=== PATIENT | female | born 1960 | race Caucasian/White ===

== ENCOUNTER 2016-06-14 19:22 | Emergency (ER) | payer MEDICARE, MEDICAID ==
[~2016-06-14 19:22] MED LIST: ATIVAN1 MG PO; DICLOFENAC SOD75 MG PO; TRAZODONE50 MG PO; ZANAFLEX 4MG TAB4 MG PO
[2016-06-14] MEDS ORDERED: CYMBALTA60 M1 PO (19:33)
[2016-06-14] MEDS ORDERED: DESYREL 100MG100 MG PO (19:33)
[2016-06-14] MEDS ORDERED: CYCLOBENZAPRINE10 M1 PO (19:34)
[2016-06-14] MEDS ORDERED: LYRICA 25MG CAP25 MG PO (19:34)
[2016-06-14 21:25] VITALS: BP 144/96
== END 2016-06-14 21:25 | disposition home or self-care (01) ==
LOC: ED 19:22
DX: M47.27 Other spondylosis with radiculopathy, lumbosacral region (principal)
CPT/HCPCS: J1885

== ENCOUNTER 2017-08-25 17:53 | Emergency (ER) | payer MEDICARE, MEDICAID ==
[~2017-08-25] VITALS: Ht 175.3 cm; Wt 56.8 kg
[~2017-08-25 17:53] MED LIST changes: +CYCLOBENZAPRINE10 M1 PO; +CYMBALTA60 M1 PO; +DESYREL 100MG100 MG PO; +LYRICA 25MG CAP25 MG PO
[2017-08-25] MEDS ORDERED: CHILDREN'S ASPI81 M1 PO (18:02)
[2017-08-25] MEDS ORDERED: LISINOPRIL10 MG PO (18:03)
[2017-08-25] MEDS ORDERED: IBU800 M1 PO (18:03)
[2017-08-25] MEDS ORDERED: METOPROLOL SUCC25 M1 PO (18:03)
[2017-08-25 18:33] LABS: BASO # 0.1 (0.02-0.10); EOS # 0.1 (0.04-0.40); EOS % 0.6 % (1.0-5.0); HEMOGLOBIN 13.4 g/dL (12.5-16.0); LYMPH# 2.8 (1.50-4.00); MEAN CELL VOLUME 86 fl (78-100); MEAN CORPUSCULAR HEMOGLOBIN 29 pg (27-31); MEAN CORPUSCULAR HGB CONC 34 g/dL (33-37); MEAN PLATELET VOLUME 10.6 fl (7.4-10.4); MONO # 0.7 (0.20-0.80); NEU # 6.2 (1.40-6.50); PLATELET COUNT 215 K/mm3 (130-400); RED BLOOD COUNT 4.68 M/mm3 (4.10-5.30); RED CELL DISTRIBUTION WIDTH 13.1 % (11.5-14.5); WHITE BLOOD COUNT 9.8 K/mm3 (4.8-10.8)
[2017-08-25 18:47] LABS: ALBUMIN 4.5 g/dL (3.5-5.0); BUN/CREATININE RATIO 14.5 (6.0-26.0); CALCIUM 9.7 mg/dL (8.4-10.2); TOTAL BILIRUBIN 0.5 mg/dL (0.2-1.3); TOTAL PROTEIN 8.2 g/dL (6.3-8.2)
[2017-08-25 18:50] LABS: PROTHROMBIN TIME 9.2 SECONDS (9.0-12.0)
[2017-08-25 18:59] LABS: POTASSIUM 2.7 mmol/L (3.6-5.0)
[2017-08-25 19:18] LABS: URINE COLOR YELLOW
[2017-08-25 19:33] LABS: URINE APPEARANCE CLEAR; URINE BILIRUBIN NEGATIVE (NEGATIVE); URINE BLOOD NEGATIVE (NEGATIVE); URINE GLUCOSE NEGATIVE (NEGATIVE); URINE KETONE NEGATIVE (NEGATIVE); URINE LEUKOCYTE ESTERASE TRACE (NEGATIVE); URINE NITRATE NEGATIVE (NEGATIVE); URINE PROTEIN(semi-quant) NEGATIVE (NEGATIVE); URINE UROBILINOGEN NORMAL (NORMAL)
[2017-08-25 22:23] LABS: BUN/CREATININE RATIO 12.7 (6.0-26.0); CALCIUM 8.9 mg/dL (8.4-10.2); POTASSIUM 3.1 mmol/L (3.6-5.0)
[2017-08-25] MEDS ORDERED: POTASSIUM CHLO20 ME3 PO (23:14)
[2017-08-26] VITALS: BP 125/75
== END 2017-08-26 | disposition home or self-care (01) ==
LOC: ED 17:53
PROVIDERS: Family Medicine
DX: E87.6 Hypokalemia (principal); R07.9 Chest pain, unspecified; I10 Essential (primary) hypertension; I49.3 Ventricular premature depolarization; I25.2 Old myocardial infarction; F17.200 Nicotine dependence, unspecified, uncomplicated; Z79.82 Long term (current) use of aspirin; Z79.899 Other long term (current) drug therapy
CPT/HCPCS: J1885; J3480

== ENCOUNTER 2018-05-02 15:27 | Emergency (ER) | payer MEDICARE, MEDICAID ==
[~2018-05-02] VITALS: Ht 172.7 cm; Wt 56.8 kg
[~2018-05-02 15:27] MED LIST changes: +CHILDREN'S ASPI81 M1 PO; +IBU800 M1 PO; +LISINOPRIL10 MG PO; +METOPROLOL SUCC25 M1 PO; +POTASSIUM CHLO20 ME3 PO
[2018-05-02] MEDS ORDERED: LYRICA50 MG PO (15:33)
[2018-05-02] MEDS ORDERED: POTASSIUM CHLO10 ME8 PO (15:33)
[2018-05-02] MEDS ORDERED: KETOROLAC TROME10 MG PO (15:33)
[2018-05-02 16:09] LABS: BASO # 0.1 (0.02-0.10); EOS # 0.1 (0.04-0.40); EOS % 1.2 % (1.0-5.0); HEMATOCRIT 41.9 % (37.0-47.0); HEMOGLOBIN 13.7 g/dL (12.5-16.0); LYMPH# 1.9 (1.50-4.00); MEAN CELL VOLUME 88 fl (78-100); MEAN CORPUSCULAR HEMOGLOBIN 29 pg (27-31); MEAN CORPUSCULAR HGB CONC 33 g/dL (33-37); MEAN PLATELET VOLUME 10.3 fl (7.4-10.4); MONO # 0.9 (0.20-0.80); NEU # 5.7 (1.40-6.50); PLATELET COUNT 231 K/mm3 (130-400); RED BLOOD COUNT 4.78 M/mm3 (4.10-5.30); RED CELL DISTRIBUTION WIDTH 13.5 % (11.5-14.5); WHITE BLOOD COUNT 8.6 K/mm3 (4.8-10.8)
[2018-05-02 16:15] LABS: ALBUMIN 4.5 g/dL (3.5-5.0); CALCIUM 9.6 mg/dL (8.4-10.2); POTASSIUM 3.2 mmol/L (3.6-5.0); TOTAL BILIRUBIN 0.3 mg/dL (0.2-1.3)
[2018-05-02 16:34] LABS: URINE APPEARANCE CLEAR; URINE BILIRUBIN NEGATIVE (NEGATIVE); URINE BLOOD NEGATIVE (NEGATIVE); URINE COLOR YELLOW; URINE GLUCOSE NEGATIVE (NEGATIVE); URINE KETONE NEGATIVE (NEGATIVE); URINE LEUKOCYTE ESTERASE NEGATIVE (NEGATIVE); URINE NITRATE NEGATIVE (NEGATIVE); URINE PROTEIN(semi-quant) NEGATIVE (NEGATIVE); URINE UROBILINOGEN NORMAL (NORMAL); URINE WBC 0-1 /hpf (0-3)
[2018-05-02 17:50] VITALS: BP 136/96
== END 2018-05-02 17:38 | disposition home or self-care (01) ==
LOC: ED 15:27
PROVIDERS: Physician Assistant
DX: E86.0 Dehydration (principal); E87.6 Hypokalemia; I95.1 Orthostatic hypotension; F41.9 Anxiety disorder, unspecified; I47.1 Supraventricular tachycardia; F43.10 Post-traumatic stress disorder, unspecified; M79.7 Fibromyalgia; Z90.710 Acquired absence of both cervix and uterus; Z90.89 Acquired absence of other organs
CPT/HCPCS: J7030

== ENCOUNTER → 2018-05-09 | Outpatient (CLI) | payer MEDICARE, MEDICAID ==
[2018-05-02 17:50] VITALS: BP 136/96
[~2018-05-09] MED LIST changes: +KETOROLAC TROME10 MG PO; +LYRICA50 MG PO; +POTASSIUM CHLO10 ME8 PO
[2018-05-09 16:48] LABS: ALBUMIN 4.1 g/dL (3.5-5.0); POTASSIUM 3.7 mmol/L (3.6-5.0); TOTAL BILIRUBIN 0.3 mg/dL (0.2-1.3); TOTAL PROTEIN 7.4 g/dL (6.3-8.2)
[2018-05-09 17:02] LABS: BASO # 0.1 (0.02-0.10); EOS # 0.2 (0.04-0.40); EOS % 2.1 % (1.0-5.0); HEMOGLOBIN 12.8 g/dL (12.5-16.0); LYMPH# 1.9 (1.50-4.00); MEAN CELL VOLUME 90 fl (78-100); MEAN CORPUSCULAR HEMOGLOBIN 29 pg (27-31); MEAN CORPUSCULAR HGB CONC 32 g/dL (33-37); MEAN PLATELET VOLUME 10.8 fl (7.4-10.4); MONO # 0.7 (0.20-0.80); NEU # 4.4 (1.40-6.50); PLATELET COUNT 202 K/mm3 (130-400); RED BLOOD COUNT 4.44 M/mm3 (4.10-5.30); RED CELL DISTRIBUTION WIDTH 13.7 % (11.5-14.5); WHITE BLOOD COUNT 7.2 K/mm3 (4.8-10.8)
== END ==
LOC: LAB 15:10
PROVIDERS: Family Medicine
DX: E03.9 Hypothyroidism, unspecified (principal); S14.109A Unspecified injury at unspecified level of cervical spinal cord, initial encounter; R79.89 Other specified abnormal findings of blood chemistry

== ENCOUNTER → 2018-05-22 | Outpatient (CLI) | payer MEDICARE, MEDICAID ==
[2018-05-02 17:50] VITALS: BP 136/96
== END ==
LOC: MAMMO 10:00
DX: Z12.31 Encounter for screening mammogram for malignant neoplasm of breast (principal)

== ENCOUNTER → 2019-03-30 | Outpatient (CLI) | payer MEDICARE, MEDICAID ==
[2019-03-30 10:52] LABS: BASO # 0.1 (0.02-0.10); EOS # 0.2 (0.04-0.40); EOS % 2.5 % (1.0-5.0); HEMOGLOBIN 13.1 g/dL (12.5-16.0); LYMPH# 1.7 (1.50-4.00); MEAN CELL VOLUME 89 fl (78-100); MEAN CORPUSCULAR HEMOGLOBIN 28 pg (27-31); MEAN CORPUSCULAR HGB CONC 32 g/dL (33-37); NEU # 5.8 (1.40-6.50); PLATELET COUNT 228 K/mm3 (130-400); RED BLOOD COUNT 4.62 M/mm3 (4.10-5.30); RED CELL DISTRIBUTION WIDTH 12.8 % (11.5-14.5); WHITE BLOOD COUNT 8.8 K/mm3 (4.8-10.8)
[2019-03-30 11:03] LABS: POTASSIUM 3.4 mmol/L (3.5-5.1)
[2019-03-30 11:05] LABS: CALCIUM 8.9 mg/dL (8.3-10.5)
[2019-03-30 11:06] LABS: TOTAL PROTEIN 7.5 g/dL (6.4-8.3)
[2019-03-30 11:44] LABS: TOTAL BILIRUBIN 0.1 mg/dL (0.2-1.2)
== END ==
LOC: LAB 10:36
PROVIDERS: Family Medicine
DX: R53.83 Other fatigue (principal); R79.89 Other specified abnormal findings of blood chemistry

== ENCOUNTER → 2019-04-01 | Outpatient (CLI) | payer MEDICARE, MEDICAID | LOC: RAD 08:08 | DX: M48.02 Spinal stenosis, cervical region (principal); S14.109A Unspecified injury at unspecified level of cervical spinal cord, initial encounter; M50.20 Other cervical disc displacement, unspecified cervical region; M47.814 Spondylosis without myelopathy or radiculopathy, thoracic region; M47.816 Spondylosis without myelopathy or radiculopathy, lumbar region; M51.27 Other intervertebral disc displacement, lumbosacral region; M51.36 Other intervertebral disc degeneration, lumbar region; Z98.1 Arthrodesis status | CPT/HCPCS: A9585 ==

== ENCOUNTER → 2019-04-14 | Outpatient (CLI) | payer MEDICARE, MEDICAID | LOC: LAB 13:55 | DX: R19.7 Diarrhea, unspecified (principal) ==

== ENCOUNTER → 2020-05-27 | Outpatient (CLI) | payer MEDICARE, MEDICAID ==
[2020-05-27 15:18] LABS: BASO # 0.1 (0.02-0.10); EOS # 0.2 (0.04-0.40); EOS % 2.4 % (1.0-5.0); HEMATOCRIT 40.2 % (37.0-47.0); HEMOGLOBIN 12.9 g/dL (12.5-16.0); LYMPH# 2.3 (1.50-4.00); MEAN CELL VOLUME 87 fl (78-100); MEAN CORPUSCULAR HEMOGLOBIN 28 pg (27-31); MEAN CORPUSCULAR HGB CONC 32 g/dL (33-37); MONO # 0.6 (0.20-0.80); NEU # 3.9 (1.40-6.50); PLATELET COUNT 251 K/mm3 (130-400); RED BLOOD COUNT 4.64 M/mm3 (4.10-5.30); RED CELL DISTRIBUTION WIDTH 13.8 % (11.5-14.5); WHITE BLOOD COUNT 7.1 K/mm3 (4.8-10.8)
[2020-05-27 15:47] LABS: ALBUMIN 4.2 g/dL (3.5-5.0); POTASSIUM 3.8 mmol/L (3.5-5.1)
[2020-05-27 15:48] LABS: CALCIUM 9.2 mg/dL (8.3-10.5)
[2020-05-27 15:49] LABS: TOTAL PROTEIN 7.8 g/dL (6.4-8.3)
[2020-05-27 15:51] LABS: TOTAL BILIRUBIN 0.2 mg/dL (0.2-1.2)
== END ==
LOC: LAB 15:03
PROVIDERS: Family Medicine
DX: Z00.00 Encounter for general adult medical examination without abnormal findings (principal); E78.5 Hyperlipidemia, unspecified; M83.3 Adult osteomalacia due to malnutrition; R73.9 Hyperglycemia, unspecified